=== PATIENT | female | born 1960 | race Caucasian/White ===

== ENCOUNTER 2023-09-02 08:54 | Day surgery (SDC) | payer BC ==
[~2023-09-02 08:54] MED LIST: Lactated Ringers 1,000 ML IV SCH; Sodium Chloride 0.9% 10 ML Syringe FLUSH PRN; Sodium Chloride 0.9% 2.5 ML Syringe FLUSH PRN; Sodium Chloride 0.9% 20 ML SDV IV PRN
[2023-09-02] MEDS ORDERED: Propofol 200 MG/20 ML SDV ONE (09:44)
[2023-09-02] MEDS ORDERED: Lidocaine 2% 5 ML SDV ONE (09:44)
== END 2023-09-02 11:37 | disposition home or self-care (01) ==
LOC: MW.SDS 08:54
PROVIDERS: ATTEND Surgery
DX: Z12.11 Encounter for screening for malignant neoplasm of colon (principal); K57.30 Diverticulosis of large intestine without perforation or abscess without bleeding; Z87.891 Personal history of nicotine dependence; Z79.899 Other long term (current) drug therapy; Z79.82 Long term (current) use of aspirin
CPT/HCPCS: G0121; J2704; J7120; 00812; J3490